=== PATIENT | male | born 1980 | race Two or more races ===

== ENCOUNTER 2022-12-05 08:40 | Inpatient (IN) | payer OTHER ==
[~2022-12-05] VITALS: Ht 188 cm; Wt 83.9 kg
[2022-12-06] MEDS ORDERED: ZYLOPRIM100 M1 PO (12:22)
[2022-12-06] MEDS ORDERED: CANDESARTAN CILE8 MG PO (12:22)
[2022-12-06] MEDS ORDERED: AMLODIPINE BESYL5 MG PO (12:22)
[2022-12-06] MEDS ORDERED: ZYPITAMAG2 MG PO (12:23)
[2022-12-06] MEDS ORDERED: FUSION PLUS CA1 EACH PO (12:23)
[2022-12-10 08:48] LABS: HEMATOCRIT 30.5 % (39.0-48.0); HEMOGLOBIN 10.3 g/dL (13-16.00); MEAN CELL VOLUME 92.1 fL (80.0-100.00); MEAN CORPUSCULAR HEMOGLOBIN 31.1 pg (27.00-32.0); MEAN CORPUSCULAR HGB CONC 33.7 g/dl (32.0-36.0); PLATELET COUNT 137 K/uL (150-450); RED BLOOD COUNT 3.31 M/uL (4.00-6.00); RED CELL DISTRIBUTION WIDTH 14.5 % (11.5-14.5)
[2022-12-10 11:13] LABS: ALBUMIN 3.3 gm/dL (3.4-5.0); CALCIUM 7.2 mg/dL (8.5-10.1); PHOSPHOROUS 4.7 mg/dL (2.5-4.9); POTASSIUM 5.24 mEq/L (3.5-5.1)
[2022-12-10 11:30] LABS: HEMATOCRIT 33.2 % (39.0-48.0); MEAN CELL VOLUME 92.2 fL (80.0-100.00); MEAN CORPUSCULAR HEMOGLOBIN 30.5 pg (27.00-32.0); MEAN CORPUSCULAR HGB CONC 33.1 g/dl (32.0-36.0); PLATELET COUNT 145 K/uL (150-450); RED CELL DISTRIBUTION WIDTH 14.5 % (11.5-14.5)
[2022-12-10 11:47] LABS: CALCIUM 7.5 mg/dL (8.5-10.1); GFR 8.98; POTASSIUM 4.77 mEq/L (3.5-5.1)
[2022-12-10 12:04] LABS: GFR 8.83
[2022-12-10 12:09] LABS: CREATININE SERUM 6.84 mg/dL (0.70-1.30)
[2022-12-10 12:10] LABS: CREATININE SERUM 6.74 mg/dL (0.70-1.30)
[2022-12-11 07:26] LABS: HEMATOCRIT 28.7 % (39.0-48.0); HEMOGLOBIN 9.9 g/dL (13-16.00); MEAN CELL VOLUME 90.1 fL (80.0-100.00); MEAN CORPUSCULAR HGB CONC 34.4 g/dl (32.0-36.0); RED BLOOD COUNT 3.19 M/uL (4.00-6.00); RED CELL DISTRIBUTION WIDTH 13.9 % (11.5-14.5)
[2022-12-11 07:34] LABS: PLATELET COUNT 116 K/uL (150-450)
[2022-12-11 08:03] LABS: ALBUMIN 3.2 gm/dL (3.4-5.0); CALCIUM 7.5 mg/dL (8.5-10.1); CHOL HDL RATIO 2.3 (0-5.0); GFR 10.39; PHOSPHOROUS 4.2 mg/dL (2.5-4.9); POTASSIUM 3.99 mEq/L (3.5-5.1)
[2022-12-11 09:37] LABS: CREATININE SERUM 5.94 mg/dL (0.70-1.30)
[2022-12-12 08:13] LABS: CALCIUM 7.2 mg/dL (8.5-10.1); GFR 8.32; MAGNESIUM 2.3 mg/dL (1.8-2.4); PHOSPHOROUS 4.7 mg/dL (2.5-4.9); POTASSIUM 4.12 mEq/L (3.5-5.1)
[2022-12-12 08:14] LABS: HEMATOCRIT 25.9 % (39.0-48.0); MEAN CELL VOLUME 89.7 fL (80.0-100.00); MEAN CORPUSCULAR HEMOGLOBIN 31.4 pg (27.00-32.0); RED BLOOD COUNT 2.88 M/uL (4.00-6.00); RED CELL DISTRIBUTION WIDTH 14.1 % (11.5-14.5)
[2022-12-12 08:19] LABS: PLATELET COUNT 104 K/uL (150-450)
[2022-12-12 08:33] LABS: CREATININE SERUM 7.2 mg/dL (0.70-1.30)
[2022-12-12 10:39] LABS: MANUAL PLATELET COUNT 106
[2022-12-13 06:35] LABS: MEAN CELL VOLUME 89.9 fL (80.0-100.00); MEAN CORPUSCULAR HGB CONC 35.4 g/dl (32.0-36.0); RED BLOOD COUNT 2.62 M/uL (4.00-6.00); RED CELL DISTRIBUTION WIDTH 13.8 % (11.5-14.5)
[2022-12-13 07:06] LABS: HEMATOCRIT 23.6 % (39.0-48.0); HEMOGLOBIN 8.3 g/dL (13-16.00); MEAN CORPUSCULAR HEMOGLOBIN 31.6 pg (27.00-32.0); PLATELET COUNT 113 K/uL (150-450)
[2022-12-13 07:10] LABS: ALBUMIN 2.7 gm/dL (3.4-5.0); BILIRUBIN TOTAL 0.19 mg/dL (0.3-1.2); CALCIUM 6.9 mg/dL (8.5-10.1); GFR 7.3; MAGNESIUM 2.2 mg/dL (1.8-2.4); PHOSPHOROUS 4.1 mg/dL (2.5-4.9); POTASSIUM 4.38 mEq/L (3.5-5.1); TOTAL PROTEIN 5.7 gm/dL (6.4-8.2)
[2022-12-13 07:45] LABS: CREATININE SERUM 8.06 mg/dL (0.70-1.30)
[2022-12-14 05:06] LABS: hav igm Negative (Negative); hcv Non Reactive (Non Reactive); hep b c Negative (Negative)
[2022-12-14 06:30] LABS: HEMATOCRIT 24.4 % (39.0-48.0); MEAN CELL VOLUME 91.3 fL (80.0-100.00); MEAN CORPUSCULAR HGB CONC 33.7 g/dl (32.0-36.0); RED BLOOD COUNT 2.67 M/uL (4.00-6.00)
[2022-12-14 07:29] LABS: MEAN CORPUSCULAR HEMOGLOBIN 30.7 pg (27.00-32.0)
[2022-12-14 07:32] LABS: HEMOGLOBIN 8.2 g/dL (13-16.00); PLATELET COUNT 122 K/uL (150-450)
[2022-12-14 10:23] LABS: PLATELET ESTIMATE NORMAL (NORMAL)
== END 2022-12-16 14:58 | disposition home or self-care (01) | DRG 656 ==
LOC: O/R 12-09 05:46 → SURG 12-09 05:46
PROVIDERS: Internal Medicine; Internal Medicine Geriatric Medicine; Internal Medicine Nephrology; ADMIT Urology; ATTEND Urology
PROC: 0TT14ZZ Resection of Left Kidney, Percutaneous Endoscopic Approach (ICD-10-PCS; principal; 2022-12-09 12:15)
DX: C64.2 Malignant neoplasm of left kidney, except renal pelvis (principal); N18.6 End stage renal disease; I10 Essential (primary) hypertension